=== PATIENT | female | born 1990 | race Caucasian/White ===

== ENCOUNTER 2019-12-18 07:03 | Outpatient (CLI) | payer OTHER, SELFPAY ==
[2019-12-18 07:40] LABS: Basophils Percent Auto 0.3 % (0.2-1.2); Eosinophils Absolute Auto 0.2 K/mm3 (0-0.3); Eosinophils Percent Auto 1.5 % (0-4.4); Hematocrit 40.6 % (37.0-47.0); Hemoglobin 13.5 g/dL (12.0-15.0); Immature Granulocyte Absolute 0.06 K/mm3 (0.00-0.031); Immature Granulocyte Percent A 0.5 % (0-0.5); Lymphocytes Absolute Auto 2.75 K/mm3 (0.9-3.2); Lymphocytes Percent Auto 22.3 % (18.3-44.2); Mean Corpuscular HGB Conc 33.3 g/dl (32-36); Mean Corpuscular Hemoglobin 28.2 pg (26-34); Mean Corpuscular Volume 84.8 fl (80-100); Mean Platelet Volume 9.3 fl (7.4-10.4); Monocytes Percent Auto 8.4 % (2.6-8.5); Neutrophils Absolute Auto 8.3 K/mm3 (1.3-6.7); Platelet Count Result 373 k/mm3 (150-375); Red Blood Count 4.79 M/mm3 (4.2-5.4); Red Cell Distribution Width 13.6 % (11.5-14.5); White Blood Count 12.3 K/mm3 (4.5-10.0)
[2019-12-18 07:41] LABS: Add Urine Microscopic? YES; Appearance Urine Clear (Clear); Bacteria Urine Trace /hpf; Bilirubin Urine Negative (Negative); Blood Urine Negative (Negative); Color Urine Yellow (Yellow); Glucose Urine UA Negative (Negative); Ketones Urine Negative (Negative); Leukocyte Esterase Ur 3+ LEU/UL (NEGATIVE); Mucus Urine Rare /lpf; Nitrate Urine Negative (Negative); Protein Urine Negative (Negative); Specific Grav Ur 1.023 (1.001-1.035); Squamous Epithelial Cell Urine Many /hpf (Few); Urobilinogen Urine Negative mg/dL (<2.0); WBC Urine 31-50 /hpf (0-3)
[2019-12-18 07:52] LABS: Alanine Aminotransferase 28 U/L (4-35); Albumin Level 4.4 g/dL (3.5-5.1); Alkaline Phosphatase 83 U/L (38-126); Aspartate Amino Transferase 24 U/L (14-36); Bilirubin,Total 0.2 mg/dL (0.2-1.3); Blood Urea Nitrogen 6 mg/dL (7-17); Calcium 9.3 mg/dL (8.4-10.2); Carbon Dioxide 22 mmol/L (22-30); Chloride 104 mmol/L (98-107); Cholesterol 220 mg/dL (0-200); Estimated Glomerular Filt Rate > 60; Glucose 95 mg/dL (65-105); HDL Direct 60 mg/dL; Potassium 3.5 mmol/L (3.4-5.0); Sodium 135 mmol/L (137-145); Triglycerides 155 mg/dL (<150)
[2019-12-18 08:03] LABS: LDL Cholesterol Direct 129 mg/dL
[2019-12-18 08:15] LABS: Iron 74 ug/dL (37-170)
[2019-12-18 08:58] LABS: Folic Acid 19.9 ng/mL (2.76->20)
[2019-12-21 05:09] LABS: GGT 47 U/L (3-40)
== END 2019-12-18 07:04 | disposition home or self-care (01) ==
PROVIDERS: PCP Family Medicine; Visit Provider Family Medicine
DX: Z34.91 Encounter for supervision of normal pregnancy, unspecified, first trimester (principal); Z3A.08 8 weeks gestation of pregnancy; I10 Essential (primary) hypertension; E78.2 Mixed hyperlipidemia; R74.8 Abnormal levels of other serum enzymes
CPT/HCPCS: 36415; 80053; 80061; 81001; 82607; 82746; 82977; 83540; 83735; 84443; 85025

== ENCOUNTER 2020-06-18 01:54 | Outpatient (CLI) | payer OTHER, SELFPAY ==
[2020-06-18 02:58] LABS: Basophils Percent Auto 0.2 % (0.2-1.2); Eosinophils Absolute Auto 0.1 K/mm3 (0-0.3); Eosinophils Percent Auto 0.8 % (0-4.4); Hematocrit 34.6 % (37.0-47.0); Hemoglobin 11.4 g/dL (12.0-15.0); Immature Granulocyte Absolute 0.09 K/mm3 (0.00-0.031); Immature Granulocyte Percent A 0.7 % (0-0.5); Lymphocytes Absolute Auto 2.06 K/mm3 (0.9-3.2); Lymphocytes Percent Auto 16.1 % (18.3-44.2); Mean Corpuscular HGB Conc 32.9 g/dl (32-36); Mean Corpuscular Hemoglobin 27.2 pg (26-34); Mean Corpuscular Volume 82.6 fl (80-100); Mean Platelet Volume 9.9 fl (7.4-10.4); Monocytes Absolute Auto 1.1 K/mm3 (0.1-0.6); Monocytes Percent Auto 8.8 % (2.6-8.5); Neutrophils Absolute Auto 9.4 K/mm3 (1.3-6.7); Neutrophils Percent Auto 73.4 % (45.5-73.1); Platelet Count Result 320 k/mm3 (150-375); Red Blood Count 4.19 M/mm3 (4.2-5.4); Red Cell Distribution Width 15.2 % (11.5-14.5); White Blood Count 12.8 K/mm3 (4.5-10.0)
[2020-06-18 03:07] LABS: Add Urine Microscopic? YES; Appearance Urine Clear (Clear); Bacteria Urine Trace /hpf; Bilirubin Urine Negative (Negative); Blood Urine Negative (Negative); Color Urine Yellow (Yellow); Glucose Urine UA Negative (Negative); Ketones Urine 1+ mg/dL (Negative); Leukocyte Esterase Ur Negative LEU/UL (NEGATIVE); Mucus Urine Rare /lpf; Nitrate Urine Negative (Negative); Protein Urine Negative (Negative); Specific Grav Ur 1.013 (1.001-1.035); Squamous Epithelial Cell Urine Occasional /hpf (Few); Urobilinogen Urine Negative mg/dL (<2.0); WBC Urine 0-3 /hpf (0-3)
[2020-06-18 03:12] LABS: Alanine Aminotransferase 18 U/L (4-35); Albumin Level 3.6 g/dL (3.5-5.1); Alkaline Phosphatase 104 U/L (38-126); Anion Gap 8 mmol/L (8-16); Aspartate Amino Transferase 26 U/L (14-36); Bilirubin,Total 0.3 mg/dL (0.2-1.3); Blood Urea Nitrogen 10 mg/dL (7-17); Calcium 9.6 mg/dL (8.4-10.2); Carbon Dioxide 21 mmol/L (22-30); Chloride 105 mmol/L (98-107); Estimated Glomerular Filt Rate > 60; Glucose 108 mg/dL (65-105); Potassium 3.6 mmol/L (3.4-5.0); Sodium 134 mmol/L (137-145); Uric Acid 4.1 mg/dL (2.5-7.5)
[2020-06-18 03:14] LABS: Creatinine Urine 56.7 mg/dL; Total Protein Urine Random 13 mg/dL; Ur Ttl Prot Creatinine Ratio 0.23 mg/mg (0-0.20)
== END 2020-06-18 01:55 | disposition home or self-care (01) ==
LOC: ANHOBOP 02:30
PROVIDERS: Advanced Practice Midwife; PCP Family Medicine; Referring Provider Obstetrics & Gynecology; Visit Provider Obstetrics & Gynecology
DX: O13.9 Gestational [pregnancy-induced] hypertension without significant proteinuria, unspecified trimester (principal); Z3A.00 Weeks of gestation of pregnancy not specified
CPT/HCPCS: 36415; 59025; 80053; 81001; 82570; 84156; 84550; 85025; 87086; 87088

== ENCOUNTER 2020-06-19 08:11 | Outpatient (RCR) | payer OTHER, SELFPAY ==
[2020-05-15 09:12] VITALS: BP 119/80; PULSE 82
[2020-06-12 08:33] VITALS: BP 138/73; PULSE 78
[2020-06-19 09:41] VITALS: BP 134/90; PULSE 84
== END 2020-06-25 07:28 | disposition home or self-care (01) ==
LOC: ANHOBOP 08:11
PROVIDERS: PCP Family Medicine; Visit Provider Obstetrics & Gynecology
DX: O16.3 Unspecified maternal hypertension, third trimester (principal); Z3A.33 33 weeks gestation of pregnancy; Z3A.37 37 weeks gestation of pregnancy; Z3A.38 38 weeks gestation of pregnancy
CPT/HCPCS: 59025

== ENCOUNTER 2020-06-23 21:50 | Inpatient (IN) | payer OTHER, SELFPAY ==
[2020-06-23] VITALS (7 sets, daily range): BP systolic 130–142; BP diastolic 67–82; PULSE 76–86; TEMP 37.2
[2020-06-23] MEDS: DINOPROSTONE 10 MG VAG INSERT VAGINAL (22:35)
[2020-06-23 22:38] LABS: Basophils Percent Auto 0.3 % (0.2-1.2); Eosinophils Absolute Auto 0.2 K/mm3 (0-0.3); Eosinophils Percent Auto 1.5 % (0-4.4); Hemoglobin 11.3 g/dL (12.0-15.0); Immature Granulocyte Absolute 0.15 K/mm3 (0.00-0.031); Immature Granulocyte Percent A 1.3 % (0-0.5); Lymphocytes Absolute Auto 1.86 K/mm3 (0.9-3.2); Lymphocytes Percent Auto 15.6 % (18.3-44.2); Mean Corpuscular HGB Conc 32.3 g/dl (32-36); Mean Corpuscular Hemoglobin 26.8 pg (26-34); Mean Corpuscular Volume 83.1 fl (80-100); Mean Platelet Volume 10.3 fl (7.4-10.4); Monocytes Absolute Auto 1.3 K/mm3 (0.1-0.6); Monocytes Percent Auto 10.6 % (2.6-8.5); Neutrophils Absolute Auto 8.5 K/mm3 (1.3-6.7); Neutrophils Percent Auto 70.7 % (45.5-73.1); Platelet Count Result 310 k/mm3 (150-375); Red Blood Count 4.21 M/mm3 (4.2-5.4); Red Cell Distribution Width 15.6 % (11.5-14.5)
--- NOTE | 2020-06-23 22:43 | LDADM ---
This patient, Tamra Esparza, was admitted to Labor/Delivery/Recovery 108 on 06/23/20 at 21:50. Plans for labor, pain management and were discussed with patient. Patient/family oriented to hospital policies and general routines including ID bracelet, bed and alarms, visiting hours, pain management, procedures, bathroom and other care routines, personal items, smoking policy, room service/diet and guest tray routines, security routines, and visiting hours. Patient/Family are encouraged to report perceived risks to care and to ask questions if they do not understand what they are told or what they should do. See OBIX for further documentation.
[2020-06-23 22:46] LABS: Alanine Aminotransferase 14 U/L (4-35); Albumin Level 3.3 g/dL (3.5-5.1); Alkaline Phosphatase 95 U/L (38-126); Anion Gap 4 mmol/L (8-16); Aspartate Amino Transferase 21 U/L (14-36); Bilirubin,Total 0.2 mg/dL (0.2-1.3); Blood Urea Nitrogen 11 mg/dL (7-17); Calcium 10.1 mg/dL (8.4-10.2); Carbon Dioxide 25 mmol/L (22-30); Chloride 106 mmol/L (98-107); Estimated Glomerular Filt Rate > 60; Glucose 103 mg/dL (65-105); Potassium 3.9 mmol/L (3.4-5.0); Sodium 135 mmol/L (137-145); Uric Acid 3.7 mg/dL (2.5-7.5)
[2020-06-24] VITALS (209 sets, daily range): BP systolic 71–182; BP diastolic 39–127; PULSE 66–123; RESP 19; TEMP 36.2–37.1; O2SAT 89–100
[2020-06-24] MEDS: AMPICILLIN 2 GM/NS 100 ML 2 GM/100 ML BAG IVPB (00:37)
[2020-06-24] MEDS: LACTATED RINGERS 1,000 ML 125 ML IV CONT ×4 (00:37→20:28)
[2020-06-24] MEDS: AMPICILLIN 1 GM/NS 50 ML 1 GM/50 ML BAG IVPB ×3 (04:37→16:46)
[2020-06-24] MEDS: fentaNYL CITRATE INJ (*CRX) 100 MCG/2 ML VIAL 50 MCG IV PUSH ×2 (04:49→07:39)
[2020-06-24 07:05] LABS: Rapid Plasma Reagin Non-Reactive (NonReactive)
--- NOTE | 2020-06-24 07:31 | WPDOBADMIT ---
Obstetrics - Admit Note Admission Note: record reviewed. No pertinent additions to the history and/or any subsequent changes in the physical findings that are not consistent with the expected course of the were found.MIL for chronic HTN, AROM moderate amount of clear fluid SVe /-2 Additions to the history and/or subsequent changes in the physical findings follow. None.
--- NOTE | 2020-06-24 08:15 | WPDANESEPP ---
Anes - Eval Pre Procedure Procedure: Labor Epidural Date/Time: 06/24/20 08:15 Surgeon: Castro Preop Diagnosis: Labor Pain Pre Op Diagnosis: Induction Patient Data Age: 29 Gender: F Height: 5 ft 5 in Weight: 129 kg Last Vital Signs Temp 37.2 C 06/23/20 22:30 Pulse 68 06/24/20 00:31 BP 133/94 H 06/24/20 00:31 Allergies Allergy/AdvReac Type Severity Reaction Status Date / Time No Known Allergies Allergy Unverified 11/25/19 14:59 Home Medications Medication Instructions Recorded Confirmed Type PNV cmb#95-ferrous fumarate-FA 1 tablet PO DAILY 06/04/20 06/23/20 History [] vitamin G52-zjbxh acid 1 tablet PO DAILY 06/04/20 06/23/20 History Laboratory Tests 06/23/20 06/23/20 06/23/20 22:29 22:29 22:29 WBC 12.0 K/mm3 H K/mm3 (4.5-10.0) RBC 4.21 M/mm3 M/mm3 (4.2-5.4) Hgb 11.3 g/dL L g/dL (12.0-15.0) Hct 35.0 % L % (37.0-47.0) MCV 83.1 fl fl (80-100) MCH 26.8 pg pg (26-34) MCHC 32.3 g/dl g/dl (32-36) RDW 15.6 % H % (11.5-14.5) Plt Count 310 k/mm3 k/mm3 (150-375) MPV 10.3 fl fl (7.4-10.4) Immature Gran % (Auto) 1.3 % H % (0-0.5) Neut % (Auto) 70.7 % % (45.5-73.1) Lymph % (Auto) 15.6 % L % (18.3-44.2) [place] % (Auto) 10.6 % H % (2.6-8.5) Eos % (Auto) 1.5 % % (0-4.4) Baso % (Auto) 0.3 % % (0.2-1.2) Lymph # (Auto) 1.86 K/mm3 K/mm3 (0.9-3.2) [place] # (Auto) 1.3 K/mm3 H K/mm3 (0.1-0.6) Eos # (Auto) 0.2 K/mm3 K/mm3 (0-0.3) Baso # (Auto) 0.0 K/mm3 K/mm3 (0.0-0.1) Abs Immat Gran (auto) 0.15 K/mm3 H K/mm3 (0.00-0.031) Absolute Neuts (auto) 8.5 K/mm3 H K/mm3 (1.3-6.7) Absolute Nucleated RBC 0.0 K/mm3 K/mm3 (0.0-0.012) Nucleated RBC % 0.0 % % (0.0-0.2) Sodium Potassium Chloride Carbon Dioxide Anion Gap BUN Creatinine Estim Creat Clear Calc Estimated GFR Glucose Uric Acid Calcium Total Bilirubin AST ALT Alkaline Phosphatase Total Protein Albumin RPR Non-reactive (NonReactive) Blood Type O Positive Antibody Screen Negative 06/23/20 22:29 WBC RBC Hgb Hct MCV MCH MCHC RDW Plt Count MPV Immature Gran % (Auto) Neut % (Auto) Lymph % (Auto) [place] % (Auto) Eos % (Auto) Baso % (Auto) Lymph # (Auto) [place] # (Auto) Eos # (Auto) Baso # (Auto) Abs Immat Gran (auto) Absolute Neuts (auto) Absolute Nucleated RBC Nucleated RBC % Sodium 135 mmol/L L mmol/L (137-145) Potassium 3.9 mmol/L mmol/L (3.4-5.0) Chloride 106 mmol/L mmol/L (98-107) Carbon Dioxide 25 mmol/L mmol/L (22-30) Anion Gap 4 mmol/L L mmol/L (8-16) BUN 11 mg/dL mg/dL (7-17) Creatinine 0.40 mg/dL L mg/dL (0.7-1.0) Estim Creat Clear Calc Not Reportable Estimated GFR > 60 (59 - ) Glucose 103 mg/dL mg/dL (65-105) Uric Acid 3.7 mg/dL mg/dL (2.5-7.5) Calcium 10.1 mg/dL mg/dL (8.4-10.2) Total Bilirubin 0.2 mg/dL mg/dL (0.2-1.3) AST 21 U/L U/L (14-36) ALT 14 U/L U/L (4-35) Alkaline Phosphatase 95 U/L U/L (38-126) Total Protein 7.0 g/dL g/dL (6.3-8.2) Albumin 3.3 g/dL L g/dL (3.5-5.1) RPR Blood Type Antibody Screen : gestational age (RADHA 07/03/20. ) HCG: negative Patient hx anesthesia problems: none Family hx anesthesia problems: none [facility] Past Medical History Medical History (Reviewed 06/24/20 @ 08:16 by Lesia Broussard, SURVEY AND MAPPING TECHNICIAN
[2020-06-24] MEDS: OXYTOCIN 30 UNITS/NS 500 ML 30 UNITS/500 ML BAG IV CONT (10:44)
[2020-06-24] MEDS: ONDANSETRON INJ 4 MG/2 ML VIAL IV PUSH (17:54)
[2020-06-24] MEDS: miSOPROStol 200 MCG TABLET 1000 MCG (20:24)
[2020-06-24] MEDS: fentaNYL CITRATE INJ (*CRX) 100 MCG/2 ML VIAL IV PUSH (20:25)
[2020-06-24] MEDS: CARBOPROST TROMETHAMINE 250 MCG/ML AMPUL (20:36)
[2020-06-24] MEDS: OXYTOCIN 30 UNITS/NS 500 ML 30 UNITS/500 ML BAG 125 UNITS IV CONT (20:38)
--- NOTE | 2020-06-24 20:51 | PM.OBPRVD ---
OB - Delivery Note Procedure Delivery date: 06/24/20 Procedure: vaginal delivery Intrapartal events: Other (HTN) Induction method: AROM, per pitocin protocol and per cervidil protocol Delivery monitor: none Route of delivery: Laceration Description: Perineal - 2nd Degree Delivery repair: vicryl Specimen: Yes Quantitative Blood Loss (ml): 783 Anesthesia type: Epidural Disposition: other () Baby Date of : 06/24/20 Time of : 19:59 Weeks of gestation at delivery: 38 Infant gender: Female Weight (pounds): 7 Weight (ounces): 13 presentation: vertex position: Left Occiput Anterior Placenta delivery description: Spontaneous cord vessel description: 3 Vessels, Nuchal Cord and Clamped/Cut score one minute: 8 score five minutes: 9 Narrative: bleeding more than expected, fundus boggy, fundal massage, clots removed, pitocin increased, cytotec 1000mcg and hemobate. VSS and pt feeling well,bleeding now minimal, mother and baby in stable condition
--- NOTE | 2020-06-24 20:55 | PM.IMHP ---
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 Pyogenic granuloma Warts of foot Family History Family History Mother Family history of thyroid disease Hypertension Patient's mother is in good health Family history of anemia Grandparent Diabetes mellitus, Onset Age: 75 Hypertension, Onset Age: 72 Family history of anemia Family history of malignant neoplasm Father Hypertension Patient's father is in good health Social History Social History Smoking status: Never smoker Substance use: never Gender identity (if verbalized by the patient): Female Spiritual care concerns: No Meds Home Medications and Allergies Home Medications Medication Instructions Recorded Confirmed Type PNV cmb#95-ferrous fumarate-FA 1 tablet PO DAILY 06/04/20 06/23/20 History [] vitamin A69-lhava acid 1 tablet PO DAILY 06/04/20 06/23/20 History Allergies Allergy/AdvReac Type Severity Reaction Status Date / Time No Known Allergies Allergy Unverified 11/25/19 14:59 Vital Signs Vital Signs - 24 hr 06/23/20 22:30 06/23/20 22:41 06/23/20 22:46 Temperature 37.2 C Pulse Rate 76 77 Blood Pressure 142/76 H 139/77 Pulse Oximetry 06/23/20 23:01 06/23/20 23:16 06/23/20 23:31 Temperature Pulse Rate 77 86 77 Blood Pressure 138/72 136/67 136/82 Pulse Oximetry 06/23/20 23:46 06/24/20 00:01 06/24/20 00:16 Temperature Pulse Rate 80 75 74 Blood Pressure 130/77 133/74 136/69 Pulse Oximetry 06/24/20 00:31 06/24/20 08:30 06/24/20 08:41 Temperature 36.2 C L Pulse Rate 68 70 Blood Pressure 133/94 H 145/86 H Pulse Oximetry 06/24/20 09:31 06/24/20 09:34 06/24/20 09:36 Temperature Pulse Rate 86 84 Blood Pressure 134/72 139/67 Pulse Oximetry 99 98 06/24/20 09:39 06/24/20 09:42 06/24/20 09:44 Temperature Pulse Rate 86 82 Blood Pressure 125/60 126/78 Pulse Oximetry 99 99 06/24/20 09:46 06/24/20 09:48 06/24/20 09:49 Temperature Pulse Rate 82 84 Blood Pressure 114/67 120/65 Pulse Oximetry 98 06/24/20 09:51 06/24/20 09:53 06/24/20 09:54 Temperature Pulse Rate 81 88 Blood Pressure 107/44 L 118/52 L Pulse Oximetry 99 06/24/20 09:56 06/24/20 09:58 06/24/20 09:59 Temperature Pulse Rate 79 84 Blood Pressure 113/65 104/39 L Pulse Oximetry 99 06/24/20 10:01 06/24/20 10:03 06/24/20 10:04 Temperature Pulse Rate 86 82 Blood Pressure 116/62 120/58 L Pulse Oximetry 99 06/24/20 10:06 06/24/20 10:08 06/24/20 10:09 Temperature Pulse Rate 84 88 Blood Pressure 115/58 L 117/56 L Pulse Oximetry 99 06/24/20 10:11 06/24/20 10:13 06/24/20 10:14 Temperature Pulse Rate 89 79 Blood Pressure 113/43 L 106/59 L Pulse Oximetry 99 06/24/20 10:16 06/24/20 10:18 06/24/20 10:19 Temperature Pulse Rate 77 82 Blood Pressure 104/62 112/55 L Pulse Oximetry 100 06/24/20 10:21 06/24/20 10:24 06/24/20 10:25 Temperature Pulse Rate 82 78 79 Blood Pressure 102/54 L 71/50 L 96/47 L Pulse Oximetry 99 06/24/20 10:28 06/24/20 10:29 06/24/20 10:30 Temperature 36.6 C Pulse Rate 80 Blood Pressure 93/58 L Pulse Oximetry 100 06/24/20 10:31 06/24/20 10:33 06/24/20 10:34 Temperature Pulse Rate 75 74 Blood Pressure 112/65 110/58 L Pulse Oximetry 98 06/24/20 10:36 06/24/20 10:38 06/24/20 10:39 Temperature Pulse Rate 80 75 Blood
[2020-06-24] MEDS: OXYTOCIN 30 UNITS/NS 500 ML 30 UNITS/500 ML BAG 999 UNITS IV CONT (22:06)
[2020-06-24] MEDS: IBUPROFEN 600 MG TABLET PO (23:07)
--- NOTE | 2020-06-24 23:14 | OBPPTRN ---
Patient transferred to post room #287 via wheelchair with in crib. Support person present. Oriented to unit, room, information board, rooming in, admission packet and security measures. Patient verbalizes understanding.
[2020-06-25 05:06] LABS: Hematocrit 28.3 % (37.0-47.0); Hemoglobin 9.2 g/dL (12.0-15.0)
--- NOTE | 2020-06-25 08:00 | PM.OBPNVD ---
OB - PN: Subj Subjective Date/time seen: 06/25/20 08:00 Patient comments: no complaints baby status: doing well OB - PN: Obj Data Labs CBC & Chem 7: 06/25/20 04:46 06/23/20 22:29 Labs: Laboratory Results - last 24 hr 06/25/20 04:46 Hgb 9.2 L Hct 28.3 L OB - PN A/P Plan day: 1 Plan: routine care Time Spent With Patient Time: Total time spent is greater than 50% in coordination of care (as documented) at patient's floor/unit and/or counseling patient: Time with patient: less than 15 minutes Review of Systems Review of Systems: All systems reviewed & are unremarkable except as noted in HPI and below Exam Narrative: Exam Narrative: Fundus firm and vaginal flow controlled. No lower ext redness, warmth, or edema. Negative homans. Const: General: comfortable Chest: Breast/axilla inspection: normal inspection of the breasts Resp: Effort & Inspection: normal respiratory effort Cardio: Rate: regular rate GI: GI Palp: Yes Soft to palpation Psych: Appearance: grossly normal Affect: normal affect Attitude: cooperative Thought content: Yes Normal thought content present Judgement: Good judgement present (Psych)
[2020-06-25 08:25] VITALS: BP 141/78; PULSE 80; RESP 16; TEMP 36.5; O2SAT 99
[2020-06-25] MEDS: MULTIVIT/MIN/PREN/FOL AC/IRON TABLET 1 TAB PO (08:29)
[2020-06-25] MEDS: POLYSACCHARIDE IRON COMPLEX 150 MG CAPSULE PO ×2 (08:29→16:30)
[2020-06-25] MEDS: DOCUSATE SODIUM 100 MG CAPSULE PO ×2 (08:29→16:31)
[2020-06-25] MEDS: IBUPROFEN 600 MG TABLET PO ×2 (08:29→16:30)
[2020-06-25 08:40] VITALS: PULSE 80; RESP 16; O2SAT 99
--- NOTE | 2020-06-25 10:33 | WPDANLDPN2 ---
Anes-Prog Note L&D Date/Time: 06/25/20 10:33 Comfortable throughout: labor and delivery Neuraxial method: epidural Epidural/Spinal procedure site: clean & non-tender Neuro status: Neuro function grossly intact. Cardiovascular status: normal Respiratory status: normal Airway patency: baseline Mental status: baseline Post-Op hydration status: normal Vital Signs: Last Vital Signs Temp 36.5 C 06/25/20 08:25 Pulse 80 06/25/20 08:25 Resp 16 06/25/20 08:25 BP 141/78 H 06/25/20 08:25 Pulse Ox 99 06/25/20 08:25 Pain score (VAS): 0 I/O: Intake & Output 06/24/20 06/25/20 06/25/20 23:59 07:59 15:59 Intake Total 3000 Output Total 52 Balance 2948 Post-procedural complaints: none Patient feedback: Patient satisfied with anesthetic care.
--- NOTE | 2020-06-25 11:16 | PC.NURSE ---
Consulted with patient, reviewed feeding cues, frequencies, duration of feedings, feeding elimination flow sheet, and signs of adequate intake. Demonstrated stimulation techniques to wake for feeding. Assisted with to breast. Reviewed positioning/alignment, holding breast and asymmetrical latch on. was able to latch correctly. Infant nursed eagerly, with steady draws and frequent swallowing noted. Reviewed signs of a correct latch, effective nursing and suck swallow ratio. was able to maintain latch without discomfort to mother. Nipple care reviewed. Instructed mother to call out for RN assistance if she is unable to latch for feeding or she has discomfort with nursing. Instructed feeding should be initiated three hours from start of last feeding or if feeding cues are noted before. Mother voiced understanding of information shared.
--- NOTE | 2020-06-26 07:40 | PM.OBPNVD ---
OB - PN: Subj Subjective Date/time seen: 06/26/20 07:40 Patient comments: no complaints baby status: doing well OB - PN: Obj Data Labs CBC & Chem 7: 06/25/20 04:46 06/23/20 22:29 OB - PN A/P Time Spent With Patient Time: Total time spent is greater than 50% in coordination of care (as documented) at patient's floor/unit and/or counseling patient: Review of Systems Review of Systems: All systems reviewed & are unremarkable except as noted in HPI and below Constitutional: Constitutional: Reports as per HPI Exam Const: General: cooperative Psych: Affect: normal affect Attitude: cooperative Thought process: Normal thought process present Thought content: Yes Normal thought content present Insight: Good insight present (Psych) Judgement: Good judgement present (Psych)
--- NOTE | 2020-06-26 07:42 | PM.OBDSVD ---
DS: Admitting Diagnosis Admitting Diagnosis Admitting Diagnosis: EIL OB - DS: Summary OB Procedures : None OB Procedures Intrapartum: Spontaneous Vag Delivery and Other OB Procedures: : None Time Spent with Patient Time attestation: Total time spent providing and/or coordinating discharge services: DS: Data Data Completed and Pending Pending studies at discharge: Pending at discharge 06/24/20 20:05 Surgical [PTH] Routine Discharge Plan Discharge Attending physician on discharge: Melvin Erazo Discharging Clinician: Lien Lucero Patient Disposition: Home, Self-Care Activity: pelvic rest Diet: regular Patient Instructions: Antibiotic Form Stand Alone Forms: General Discharge Information Follow-up/Referrals: Lien Lucero, CNM [Certified Nurse [employer]] - 4 Weeks Discharge Medications: Continued vitamin O89-ladvr acid 500-400 mcg Tablet 1 tablet PO DAILY RF: 0 PNV cmb#95-ferrous fumarate-FA [] 28 mg iron- 800 mcg Tablet 1 tablet PO DAILY RF: 0 Date of admission: 06/23/20 21:50 Primary Care Provider: Shayne Castro Admitting Provider: Melvin Erazo Attending physician on admission: Melvin Erazo Condition: Stable
[2020-06-26 08:20] VITALS: BP 129/81; PULSE 74; RESP 16; TEMP 36.5; O2SAT 99
[2020-06-26 09:00] VITALS: PULSE 74; RESP 16; O2SAT 99
[2020-06-26] MEDS: IBUPROFEN 600 MG TABLET PO (09:57)
[2020-06-26] MEDS: MULTIVIT/MIN/PREN/FOL AC/IRON TABLET 1 TAB PO (09:58)
[2020-06-26] MEDS: POLYSACCHARIDE IRON COMPLEX 150 MG CAPSULE PO (09:58)
[2020-06-26] MEDS: DOCUSATE SODIUM 100 MG CAPSULE PO (09:59)
--- NOTE | 2020-06-26 11:14 | PC.NURSE ---
Patient viewed the discharge video Mother & Baby Care, The First Two Weeks . Patient was given the opportunity and encouraged to ask questions. Patient verbalized understanding of information shared and has been given the mother/baby guide for home reference.
[2020-06-27 10:12] VITALS: BP 143/93; PULSE 87; RESP 20; TEMP 36.9; O2SAT 100
== END 2020-06-26 14:10 | disposition home or self-care (01) | DRG 807 ==
LOC: ANHLDR 22:02 → ANHOB2 06-24 23:50
PROVIDERS: Advanced Practice Midwife; Admitting Provider Obstetrics & Gynecology; PCP Family Medicine; Visit Provider Obstetrics & Gynecology
DX: O10.92 Unspecified pre-existing hypertension complicating childbirth (principal); Z37.0 Single live birth; O70.1 Second degree perineal laceration during delivery; O99.824 Streptococcus B carrier state complicating childbirth; O69.81X0 Labor and delivery complicated by cord around neck, without compression, not applicable or unspecified; Z3A.38 38 weeks gestation of pregnancy; E78.5 Hyperlipidemia, unspecified
CPT/HCPCS: 36415; 80053; 84550; 85014; 85018; 85025; 86592; 86850; 86900; 86901; 88307; A9270; J0290; J2405; J2590; J2795; J3010; J7120

== ENCOUNTER 2020-06-27 10:30 | Outpatient (CLI) | payer OTHER, SELFPAY ==
[2020-06-27 10:46] VITALS: BP 151/91; PULSE 79
[2020-06-27 11:01] VITALS: BP 134/77; PULSE 77
[2020-06-27 11:07] LABS: Basophils Percent Auto 0.5 % (0.2-1.2); Eosinophils Percent Auto 2.3 % (0-4.4); Hematocrit 30.4 % (37.0-47.0); Hemoglobin 9.8 g/dL (12.0-15.0); Immature Granulocyte Percent A 2.2 % (0-0.5); Lymphocytes Percent Auto 15.7 % (18.3-44.2); Mean Corpuscular HGB Conc 32.2 g/dl (32-36); Mean Corpuscular Hemoglobin 27.2 pg (26-34); Mean Corpuscular Volume 84.4 fl (80-100); Mean Platelet Volume 9.7 fl (7.4-10.4); Monocytes Percent Auto 8.1 % (2.6-8.5); Neutrophils Percent Auto 71.2 % (45.5-73.1); Platelet Count Result 290 k/mm3 (150-375); Red Cell Distribution Width 15.9 % (11.5-14.5); White Blood Count 11.6 K/mm3 (4.5-10.0)
[2020-06-27 11:08] LABS: Basophils Absolute Auto 0.1 K/mm3 (0.0-0.1); Eosinophils Absolute Auto 0.3 K/mm3 (0-0.3); Immature Granulocyte Absolute 0.26 K/mm3 (0.00-0.031); Lymphocytes Absolute Auto 1.81 K/mm3 (0.9-3.2); Monocytes Absolute Auto 0.9 K/mm3 (0.1-0.6); Neutrophils Absolute Auto 8.2 K/mm3 (1.3-6.7)
[2020-06-27 11:21] LABS: Alanine Aminotransferase 30 U/L (4-35); Albumin Level 3.3 g/dL (3.5-5.1); Alkaline Phosphatase 81 U/L (38-126); Anion Gap 4 mmol/L (8-16); Aspartate Amino Transferase 37 U/L (14-36); Bilirubin,Total 0.3 mg/dL (0.2-1.3); Blood Urea Nitrogen 9 mg/dL (7-17); Calcium 8.7 mg/dL (8.4-10.2); Carbon Dioxide 29 mmol/L (22-30); Chloride 104 mmol/L (98-107); Estimated Glomerular Filt Rate > 60; Glucose 84 mg/dL (65-105); Potassium 3.6 mmol/L (3.4-5.0); Sodium 137 mmol/L (137-145)
[2020-06-27 11:42] VITALS: BP 129/79; PULSE 61
== END 2020-06-27 12:03 | disposition home or self-care (01) ==
LOC: ANHOBOP 10:35 → ANHOBPP 10:35
PROVIDERS: PCP Family Medicine; Visit Provider Advanced Practice Midwife
DX: O13.9 Gestational [pregnancy-induced] hypertension without significant proteinuria, unspecified trimester (principal); Z3A.00 Weeks of gestation of pregnancy not specified
CPT/HCPCS: 36415; 80053; 84550; 85025; 99199

== ENCOUNTER 2020-06-28 12:03 | Outpatient (CLI) | payer OTHER, SELFPAY ==
[2020-06-28 12:27] VITALS: BMI 46.0
[2020-06-28 12:33] LABS: Basophils Absolute Auto 0.1 K/mm3 (0.0-0.1); Basophils Percent Auto 0.6 % (0.2-1.2); Eosinophils Absolute Auto 0.3 K/mm3 (0-0.3); Eosinophils Percent Auto 3.1 % (0-4.4); Hematocrit 31.4 % (37.0-47.0); Hemoglobin 10.1 g/dL (12.0-15.0); Immature Granulocyte Percent A 1.9 % (0-0.5); Lymphocytes Absolute Auto 1.83 K/mm3 (0.9-3.2); Lymphocytes Percent Auto 17.5 % (18.3-44.2); Mean Corpuscular HGB Conc 32.2 g/dl (32-36); Mean Corpuscular Hemoglobin 27.1 pg (26-34); Mean Corpuscular Volume 84.2 fl (80-100); Mean Platelet Volume 9.4 fl (7.4-10.4); Monocytes Absolute Auto 0.9 K/mm3 (0.1-0.6); Monocytes Percent Auto 8.3 % (2.6-8.5); Neutrophils Absolute Auto 7.2 K/mm3 (1.3-6.7); Neutrophils Percent Auto 68.6 % (45.5-73.1); Platelet Count Result 331 k/mm3 (150-375); Red Blood Count 3.73 M/mm3 (4.2-5.4); Red Cell Distribution Width 16.1 % (11.5-14.5); White Blood Count 10.5 K/mm3 (4.5-10.0)
[2020-06-28 12:34] VITALS: BP 142/95; PULSE 75
[2020-06-28 12:45] LABS: Alanine Aminotransferase 41 U/L (4-35); Albumin Level 3.4 g/dL (3.5-5.1); Alkaline Phosphatase 86 U/L (38-126); Anion Gap 4 mmol/L (8-16); Aspartate Amino Transferase 41 U/L (14-36); Bilirubin,Total 0.2 mg/dL (0.2-1.3); Blood Urea Nitrogen 8 mg/dL (7-17); Calcium 9.3 mg/dL (8.4-10.2); Carbon Dioxide 29 mmol/L (22-30); Chloride 105 mmol/L (98-107); Estimated CRCL calculation 186 ml/min; Estimated Glomerular Filt Rate > 60; Glucose 83 mg/dL (65-105); Potassium 3.9 mmol/L (3.4-5.0); Sodium 138 mmol/L (137-145); Uric Acid 6.3 mg/dL (2.5-7.5)
[2020-06-28 12:46] VITALS: BP 148/90; PULSE 72
--- NOTE | 2020-06-28 12:54 | PC.NURSE ---
Jackie Simmons CNM informed pt denies headache, visual disturbance, epigastric/RUQ pain, and DTR's 1+ and no clonus. Pt still has 1-2+ pitting edema in lower legs and ankles. Informed of lab results and BPs. OK to discharge to home with instructions to return to L&D if she should develop any symptoms of pre-eclampsia as per handout. Pt is also to call the office in the morning and make appointment to be seen either Monday or Monday in the office by Zulma Lucero CNM or Jackie Simmons CNM.
[2020-06-28 13:01] VITALS: BP 155/90; PULSE 80
--- NOTE | 2020-06-28 13:01 | PC.NURSE ---
Pt is . Pt verbalizes understanding of all instruction. Pt to call when they are ready to be walked off the unit.
== END 2020-06-28 13:19 | disposition home or self-care (01) ==
LOC: ANHOBOP 12:04 → ANHOBPP 07-03 07:39
PROVIDERS: Advanced Practice Midwife; PCP Family Medicine; Visit Provider Obstetrics & Gynecology
DX: O13.9 Gestational [pregnancy-induced] hypertension without significant proteinuria, unspecified trimester (principal); Z3A.00 Weeks of gestation of pregnancy not specified
CPT/HCPCS: 36415; 80053; 84550; 85025; 99199

== ENCOUNTER 2021-04-16 06:59 | Outpatient (CLI) | payer OTHER, SELFPAY ==
[2021-04-16 07:43] LABS: Basophils Absolute Auto 0.1 K/mm3 (0.0-0.1); Basophils Percent Auto 0.3 % (0.2-1.2); Eosinophils Absolute Auto 0.2 K/mm3 (0-0.3); Eosinophils Percent Auto 1.4 % (0-4.4); Hematocrit 40.2 % (37.0-47.0); Immature Granulocyte Absolute 0.08 K/mm3 (0.00-0.031); Immature Granulocyte Percent A 0.6 % (0-0.5); Lymphocytes Absolute Auto 2.52 K/mm3 (0.9-3.2); Lymphocytes Percent Auto 17.4 % (18.3-44.2); Mean Corpuscular HGB Conc 32.3 g/dl (32-36); Mean Corpuscular Hemoglobin 27.6 pg (26-34); Mean Corpuscular Volume 85.4 fl (80-100); Mean Platelet Volume 9.7 fl (7.4-10.4); Monocytes Absolute Auto 1.5 K/mm3 (0.1-0.6); Monocytes Percent Auto 10.5 % (2.6-8.5); Neutrophils Absolute Auto 10.1 K/mm3 (1.3-6.7); Neutrophils Percent Auto 69.8 % (45.5-73.1); Platelet Count Result 376 k/mm3 (150-375); Red Blood Count 4.71 M/mm3 (4.2-5.4); Red Cell Distribution Width 14.5 % (11.5-14.5); White Blood Count 14.5 K/mm3 (4.5-10.0)
[2021-04-16 07:56] LABS: Add Urine Microscopic? YES; Appearance Urine Cloudy (Clear); Bacteria Urine Trace /hpf; Bilirubin Urine Negative (Negative); Blood Urine Negative (Negative); Color Urine Yellow (Yellow); Glucose Urine UA Negative (Negative); Ketones Urine Negative (Negative); Leukocyte Esterase Ur Trace LEU/UL (NEGATIVE); Mucus Urine Few /lpf; Nitrate Urine Negative (Negative); Protein Urine 1+ mg/dL (Negative); Specific Grav Ur 1.028 (1.001-1.035); Squamous Epithelial Cell Urine Many /hpf (Few); Urobilinogen Urine Negative mg/dL (<2.0)
[2021-04-16 07:58] LABS: Alanine Aminotransferase 30 U/L (4-35); Albumin Level 4.8 g/dL (3.5-5.1); Alkaline Phosphatase 97 U/L (38-126); Anion Gap 13 mmol/L (8-16); Aspartate Amino Transferase 28 U/L (14-36); Bilirubin,Total 0.5 mg/dL (0.2-1.3); Blood Urea Nitrogen 11 mg/dL (7-17); Calcium 9.8 mg/dL (8.4-10.2); Carbon Dioxide 23 mmol/L (22-30); Chloride 102 mmol/L (98-107); Cholesterol 256 mg/dL (0-200); Estimated Glomerular Filt Rate > 60; Glucose 96 mg/dL (65-110); HDL Direct 54 mg/dL; Iron 47 ug/dL (37-170); Potassium 3.8 mmol/L (3.4-5.0); Sodium 138 mmol/L (137-145); Triglycerides 205 mg/dL (<150)
[2021-04-16 08:09] LABS: LDL Cholesterol Direct 148 mg/dL
[2021-04-16 08:12] LABS: Percent Iron Saturation 11 % (20-50)
[2021-04-16 09:05] LABS: Folic Acid 16.7 ng/mL (2.76->20)
== END 2021-04-16 07:00 | disposition home or self-care (01) ==
LOC: ANHLAB 07:01
PROVIDERS: PCP Family Medicine; Visit Provider Family Medicine
DX: E78.2 Mixed hyperlipidemia (principal); D64.9 Anemia, unspecified; I10 Essential (primary) hypertension
CPT/HCPCS: 36415; 80053; 80061; 81001; 82607; 82728; 82746; 83540; 83550; 84443; 85025

== ENCOUNTER 2022-12-07 00:01 | Inpatient (IN) | payer OTHER, SELFPAY ==
[2022-12-07] VITALS (387 sets, daily range): BP systolic 84–184; BP diastolic 34–119; PULSE 40–135; RESP 18; TEMP 36.4–37.2; O2SAT 91–100; BMI 42.2
--- NOTE | 2022-12-07 00:22 | LDADM ---
This patient, Tamra Esparza, was admitted to Labor/Delivery/Recovery 103 on 12/07/22 at 00:01. Plans for labor, pain management and were discussed with patient. Patient/family oriented to hospital policies and general routines including ID bracelet, bed and alarms, visiting hours, pain management, procedures, bathroom and other care routines, personal items, smoking policy, room service/diet and guest tray routines, security routines, and visiting hours. Patient/Family are encouraged to report perceived risks to care and to ask questions if they do not understand what they are told or what they should do. See OBIX for further documentation.
[2022-12-07 00:59] LABS: Basophils Absolute Auto 0.1 K/mm3 (0.0-0.1); Basophils Percent Auto 0.5 % (0.2-1.2); Eosinophils Absolute Auto 0.4 K/mm3 (0-0.3); Eosinophils Percent Auto 3.5 % (0-4.4); Hematocrit 36.1 % (37.0-47.0); Hemoglobin 11.6 g/dL (12.0-15.0); Immature Granulocyte Absolute 0.08 K/mm3 (0.00-0.031); Immature Granulocyte Percent A 0.8 % (0-0.5); Lymphocytes Absolute Auto 2.39 K/mm3 (0.9-3.2); Lymphocytes Percent Auto 23.4 % (18.3-44.2); Mean Corpuscular HGB Conc 32.1 g/dl (32-36); Mean Platelet Volume 11.7 fl (7.4-10.4); Monocytes Absolute Auto 1.1 K/mm3 (0.1-0.6); Monocytes Percent Auto 10.8 % (2.6-8.5); Neutrophils Absolute Auto 6.3 K/mm3 (1.3-6.7); Platelet Count Result 228 k/mm3 (150-375); Red Blood Count 4.15 M/mm3 (4.2-5.4); Red Cell Distribution Width 15.2 % (11.5-14.5); White Blood Count 10.2 K/mm3 (4.5-10.0)
[2022-12-07] MEDS: LABETALOL HCL INJ 100 MG/20 ML VIAL 20 MG IV PUSH (01:24)
[2022-12-07] MEDS: miSOPROStol 25 MCG TABLET BY MOUTH (01:27)
[2022-12-07 01:28] LABS: Alanine Aminotransferase 18 U/L (6-35); Albumin Level 3.5 g/dL (3.5-5.1); Alkaline Phosphatase 81 U/L (38-126); Anion Gap 4 mmol/L (8-16); Aspartate Amino Transferase 33 U/L (14-36); Bilirubin,Total 0.4 mg/dL (0.2-1.3); Blood Urea Nitrogen 11 mg/dL (7-17); Carbon Dioxide 24 mmol/L (22-30); Chloride 105 mmol/L (98-107); Estimated CRCL calculation 209 ml/min; Estimated Glomerular Filt Rate > 60; Glucose 106 mg/dL (65-110); Potassium 4.1 mmol/L (3.4-5.0); Sodium 133 mmol/L (137-145)
[2022-12-07] MEDS: LABETALOL HCL INJ 100 MG/20 ML VIAL 40 MG IV PUSH (02:20)
[2022-12-07 02:45] LABS: Appearance Urine Cloudy (Clear); Bacteria Urine None Seen /hpf; Bilirubin Urine Negative (Negative); Blood Urine Negative (Negative); Color Urine Yellow (Yellow); Glucose Urine UA Negative (Negative); Ketones Urine Negative (Negative); Leukocyte Esterase Ur 1+ LEU/UL (Negative); Need Manual Microscopic Reviewed; Nitrate Urine Negative (Negative); Non Pathogenic Casts 0-2; Protein Urine 1+ mg/dL (Negative); RBC Urine 0-2 /hpf (0-2); Specific Grav Ur 1.011 (1.001-1.035); Squamous Epithelial Cell Urine None seen /hpf (Few); Urobilinogen Urine 0.2 mg/dL (<2.0); WBC Urine 0-5 /hpf
[2022-12-07 02:46] LABS: Add Urine Microscopic? YES
[2022-12-07 03:09] LABS: Creatinine Urine 58.9 mg/dL; Total Protein Urine Random 38 mg/dL; Ur Ttl Prot Creatinine Ratio 0.65 mg/mg (0-0.20)
[2022-12-07] MEDS: MAGNESIUM SULF 4 GM/WATER100ML 4 GM/100 ML BAG IVPB (04:01)
[2022-12-07] MEDS: MAGNESIUM SULF 20GM/WATER500ML 500 ML 50 MG IV CONT ×2 (04:33→14:42)
[2022-12-07] MEDS: LACTATED RINGERS 1,000 ML 75 ML IV CONT ×2 (04:36→12:53)
[2022-12-07] MEDS: LABETALOL HCL INJ 100 MG/20 ML VIAL 80 MG IV PUSH (04:47)
[2022-12-07 04:55] LABS: Glucose Point of Care 87 mg/dl (65-105)
[2022-12-07 06:05] LABS: Uric Acid 4.8 mg/dL (2.5-7.5)
[2022-12-07] MEDS: OXYTOCIN 30 UNITS/NS 500 ML 30 UNITS/500 ML BAG IV CONT (07:23)
--- NOTE | 2022-12-07 07:39 | PM.IMHP ---
H&P: HPI History of Present Illness Date/Time: 12/07/22 07:39 Chief Complaint: pt arrived for [facility], pt has a history of obesity and chronic hypertension. Pt developed GDMA-1 and blood sugar is wnl this morning. Pt arrived with severe range blood pressures and was treated with labetalol x 2. PCR 0.65. Dr. Park was notified at the time and magnesium sulfate started. Denies headache, vision changes, and epigastric pain. Last complicated by preeclampsia and hemorrhage Review of Systems Review of Systems: All systems reviewed & are unremarkable except as noted in HPI and below [facility] Past Medical History Medical History (Updated 12/07/22 @ 07:49 by Lien Lucero CNM) Anemia hemoglobin 10.1 on 06/28/2020. hemoglobin 13 with iron 47 and 11% saturation with ferritin 15.7 on 04/16/2021 Anxiety COVID-19 (03/25/20) Elevated liver enzymes normal enzymes on 04/16/2021 with AST 28 and ALT 30 Essential (primary) hypertension Irritable bowel syndrome with constipation and diarrhea Mixed hyperlipidemia total cholesterol 256, triglycerides 205, HDL 54, LDL 148 on 04/16/2021 Morbid obesity with BMI of 40.0-44.9, adult Morbid obesity with body mass index (BMI) of 40.0 to 49.9 Neoplasm of skin of cheek Normal in multigravida in third trimester EDC 12/23/2022 Pyogenic granuloma Rash and nonspecific skin eruption Warts of foot Family History Family History Mother Family history of thyroid disease Hypertension Patient's mother is in good health Family history of anemia Grandparent Diabetes mellitus, Onset Age: 75 Hypertension, Onset Age: 72 Family history of anemia Family history of malignant neoplasm Father Hypertension Patient's father is in good health Social History Social History (Updated 09/21/22 @ 08:03 by Tara Jalloh MA) Smoking status: Never smoker Alcohol intake: never Substance use: never Substance use type: does not use Lack of Transportation: No Lack of Food: Never True Current Housing: I Have Housing Concerned About Future Housing: No Difficulty Paying Gas/Electric Bills: No Difficulty Paying for Meds: No Currently Unemployed: No Education: Bachelor's Degree Difficulty w/ Childcare or Family Care: No Living arrangements: with family Gender identity (if verbalized by the patient): Female Spiritual care concerns: No Meds Home Medications and Allergies Home Medications Medication Instructions Recorded Confirmed Type aspirin 81 mg tablet,delayed 81 mg PO DAILY 09/21/22 11/25/22 History release (Adult Low Dose Aspirin) labetalol 200 mg tablet 200 mg PO Q12H #180 tabs 09/21/22 11/25/22 Rx prenat.vits,lauren,icy-mwni-xizlp 1 tablet PO DAILY 09/21/22 11/25/22 History Allergies Allergy/AdvReac Type Severity Reaction Status Date / Time No Known Allergies Allergy Verified 11/25/22 15:42 Vital Signs Vital Signs - 24 hr 12/07/22 00:18 12/07/22 00:29 12/07/22 00:46 Temperature Pulse Rate 84 83 Respiratory Rate Blood Pressure 162/99 H 170/85 H Pulse Oximetry Oxygen Delivery Room Air 12/07/22 01:15 12/07/22 01:25 12/07/22 01:30 Temperature Pulse Rate 81 83 Respiratory Rate Blood Pressure 161/99 H 160/97 H Pulse Oximetry 97 98 Oxygen Delivery 12/07/22 01:35 12/07/22 01:37 12/07/22 01:40 Temperature Pulse Rate 78 78 Respiratory Rate Blood Pressure 153/94 H 149/90 H Pulse Oximetry 97 97 Oxygen Delivery 12/07/22 01:45 12/07/22 01:50 12/07/22 01:55 Temperature Pulse Rate 71 Respiratory Rate Blood Pressure 155/94 H Pulse Oximetry 98 96 98 Oxygen Delivery 12/07/22 02:00 12/07/22 02:06 12/07/22 02:10 Temperature Pulse Rate 76 75 Respiratory Rate Blood Pressure 155/93 H 170/96 H Pulse Oximetry 98 98 Oxygen Delivery 12/07/22 02:11 12/07/22 02:16 12/07/22 02:20
[2022-12-07] MEDS: LABETALOL HCL 100 MG TABLET 200 MG PO (07:42)
[2022-12-07 07:54] LABS: Glucose Point of Care 87 mg/dl (65-105)
[2022-12-07 09:17] LABS: Rapid Plasma Reagin Non-Reactive (NonReactive)
--- NOTE | 2022-12-07 10:15 | PC.NURSE ---
5923- Introductions were made. Mother states she plans to breastfeed. Trifold with bonding/feeling education was left with mother. Encouragement to mother to call if she has needs. Primary RN was present.
[2022-12-07 11:38] LABS: Glucose Point of Care 76 mg/dl (65-105)
[2022-12-07] MEDS: ONDANSETRON INJ 4 MG/2 ML VIAL IV PUSH (15:39)
[2022-12-07] MEDS: PHENYLEPHRINE 1,000 MCG/10 ML SYRINGE 100 MCG IV PUSH ×2 (15:46→15:56)
--- NOTE | 2022-12-07 15:49 | WPDANESEPPF ---
Anes - Initial Pre Proc Eval Procedure: labor epidural Date/Time: 12/07/22 15:49 Surgeon: Melvin Erazo MD Pre Op Diagnosis: labor pain Pre Op Diagnosis: Induction of Labor Patient Data Age: 32 Gender: F Height: 1.65 m Weight: 115 kg Last Vital Signs Temp 36.4 C 12/07/22 10:45 Pulse 76 12/07/22 15:48 Resp 18 12/07/22 04:09 BP 107/49 L 12/07/22 15:48 Pulse Ox 94 12/07/22 15:45 O2 Del Method Room Air 12/07/22 00:18 Allergies Allergy/AdvReac Type Severity Reaction Status Date / Time No Known Allergies Allergy Verified 11/25/22 15:42 Home Medications Medication Instructions Recorded Confirmed Type aspirin 81 mg tablet,delayed 81 mg PO DAILY 09/21/22 11/25/22 History release (Adult Low Dose Aspirin) labetalol 200 mg tablet 200 mg PO Q12H #180 tabs 09/21/22 11/25/22 Rx prenat.vits,lauren,pqu-nmrz-atbge 1 tablet PO DAILY 09/21/22 11/25/22 History Laboratory Tests 12/07/22 12/07/22 12/07/22 00:41 02:24 04:52 WBC 10.2 H K/mm3 (4.5-10.0) RBC 4.15 L M/mm3 (4.2-5.4) Hgb 11.6 L g/dL (12.0-15.0) Hct 36.1 L % (37.0-47.0) MCV 87.0 fl (80-100) MCH 28.0 pg (26-34) MCHC 32.1 g/dl (32-36) RDW 15.2 H % (11.5-14.5) Plt Count 228 k/mm3 (150-375) MPV 11.7 H fl (7.4-10.4) Immature Gran % (Auto) 0.8 H % (0-0.5) Neut % (Auto) 61.0 % (45.5-73.1) Lymph % (Auto) 23.4 % (18.3-44.2) [place] % (Auto) 10.8 H % (2.6-8.5) Eos % (Auto) 3.5 % (0-4.4) Baso % (Auto) 0.5 % (0.2-1.2) Lymph # (Auto) 2.39 K/mm3 (0.9-3.2) [place] # (Auto) 1.1 H K/mm3 (0.1-0.6) Eos # (Auto) 0.4 H K/mm3 (0-0.3) Baso # (Auto) 0.1 K/mm3 (0.0-0.1) Abs Immat Gran (auto) 0.08 H K/mm3 (0.00-0.031) Absolute Neuts (auto) 6.3 K/mm3 (1.3-6.7) Absolute Nucleated RBC 0.0 K/mm3 (0.0-0.012) Nucleated RBC % 0.0 % (0.0-0.2) Sodium 133 L mmol/L (137-145) Potassium 4.1 mmol/L (3.4-5.0) Chloride 105 mmol/L (98-107) Carbon Dioxide 24 mmol/L (22-30) Anion Gap 4 L mmol/L (8-16) BUN 11 mg/dL (7-17) Creatinine 0.40 L mg/dL (0.7-1.0) Estim Creat Clear Calc 209 ml/min Estimated GFR > 60 (59 - ) Glucose 106 mg/dL (65-110) POC Capillary Glucose 87 mg/dl (65-105) Uric Acid 4.8 mg/dL (2.5-7.5) Calcium 9.0 mg/dL (8.4-10.2) Total Bilirubin 0.4 mg/dL (0.2-1.3) AST 33 U/L (14-36) ALT 18 U/L (6-35) Alkaline Phosphatase 81 U/L (38-126) Total Protein 7.0 g/dL (6.3-8.2) Albumin 3.5 g/dL (3.5-5.1) Urine Color Yellow (Yellow) Urine Appearance Cloudy H (Clear) Urine pH 7.0 (5.0-9.0) Ur Specific [place] 1.011 (1.001-1.035) Urine Protein 1+ H mg/dL (Negative) Urine Glucose (UA) Negative mg/dL (Negative) Urine Ketones Negative mg/dL (Negative) Ur Blood (Man) Negative (Negative) Urine Nitrate Negative (Negative) Urine Bilirubin Negative (Negative) Urine Urobilinogen 0.2 mg/dL (<2.0) Add Ur Microanalysis Reviewed Leukocyte Esterase Rfl 1+ H EMILY/UL (Negative) Urine RBC 0-2 /hpf (0-2) Urine WBC 0-5 /hpf Ur Squamous Epith Cells None seen /hpf (Few) Urine Bacteria None seen /hpf Urine Casts 0-2 U Random Total Protein 38 mg/dL Urine Creatinine 58.9 mg/dL Protein/Creat Ratio 2 0.65 H mg/mg (0-0.20) RPR Non-reactive (NonReactive) Blood Type O Positive Antibody Screen Negative 12/07/22 12/07/22
[2022-12-07 16:54] LABS: Glucose Point of Care 90 mg/dl (65-105)
[2022-12-07 20:37] LABS: Glucose Point of Care 91 mg/dl (65-105)
--- NOTE | 2022-12-07 21:23 | WPDHPUPDATE1 ---
History and Physical Update Update Date/Time: 12/07/22 21:23 History and Physical has been reviewed, including an updated exam of the patient. 6cm, failure to progress, vertex high, EFW 4000g, GDM, obesity, and epidural not working. Pt desires to proceed with . Consented for CS. Pt is L and D RN, questions answered, support given, will proceed. Ancef and azithro. May need general anesthesia, pt aware. Risks, benefits, and alternatives have been discussed and questions answered. Patient agrees to proceed with procedure.
--- NOTE | 2022-12-07 22:51 | PM.OBPRVD ---
OB - Delivery Note Procedure Delivery date: 12/07/22 Procedure: Procedures Operation Date: 12/07/22 21:05 Actual Procedure Side Surgeon p Section Iveth Park MD Events: Chronic Hypertension, Gestational Diabetes and Preeclampsia w severe features Intrapartal Events: Failed Induction of Labor Induction method: AROM, Per Misoprostol Protocol and Per Pitocin Protocol Delivery monitor: External FHT and Internal Uterine Route of delivery: Prior to decision for section, ACOG/SMFM labor guidelines were considered and discussed with the patient and staff. Decision made to proceed with the section.: Yes Specimen: Yes (placenta) Quantitative Blood Loss (ml): 935 Anesthesia type: Epidural Disposition: Floor Complications: none Narrative: The patient was taken to the OR and received spinal anesthesia. She was placed in dorsal supine position with left lateral tilt. SCDs and araujo were placed. She was prepped and draped in the normal sterile fashion. A Pfannensteil skin incision was made and carried through to the underlying layer of fascia. The fascia was incised in the midline and then extended laterally using Ramirez scissors. The muscles were in the midline and the peritoneum was entered bluntly. The peritoneal incision was extended inferiorly and superiorly with care to avoid the bladder. The bladder blade was then inserted, the vesicouterine peritoneum was grasped, incised with Metzenbaum scissors, and a bladder flap created. The bladder blade was reinserted. A low transverse uterine incision was made with a scalpel and extended bluntly. AROM was performed and fluid was noted to be clear. The head was delivered, followed by the remainder of the baby. The baby's oropharynx was suctioned. After 30 seconds, the cord was clamped and cut and the infant was handed off. Cord blood was obtained and the placenta was then removed manually. The uterus was exteriorized. A moist lap sponge was used to curette the endometrium. The uterine incision was then closed with two layers of 0-Vicryl in a running, locking fashion. Three figure of eight sutures placed for hemostasis and good hemostasis was noted. The posterior cul de sac was irrigated with normal saline and cleared of all clot and debris. The uterus was returned to the abdomen. Both lateral gutters were then irrigated. The rectus muscles were inspected and found to be hemostatic. The fascia was reapproximated using 0-Vicryl in running fashion. The subcutaneous tissue was irrigated with normal saline and made hemostatic with Bovie electrocautery. The subcutaneous tissue was reapproximated with a layer of running 2-0 plain gut. The skin was then closed with absorbable yash in a subcuticular fashion. Steri strips and a bandage were applied. The uterus was evacuated. The patient tolerated the procedure very well. All counts were correct. She was taken to the recovery room in good condition. Baby Date of : 12/07/22 Time of : 21:53 Weeks of gestation at delivery: 37 gender: Male Weight (pounds): 7 Weight (ounces): 12 presentation: vertex Placenta delivery description: Manual Removal Cord Vessel Description: 3 Vessels and Delayed Cord Clamping score one minute: 9 score five minutes: 9
[2022-12-08] VITALS (28 sets, daily range): BP systolic 124–155; BP diastolic 63–94; PULSE 77–93; RESP 18–20; TEMP 36.5–36.7; O2SAT 96–100
[2022-12-08] MEDS: HYDROcodone/acetaminophen (*CRX) 10-325 MG TABLET 1 TAB PO ×2 (00:20→03:27)
[2022-12-08] MEDS: LABETALOL HCL 100 MG TABLET 200 MG PO ×3 (00:21→20:38)
[2022-12-08] MEDS: COSYNTROPIN 0.25 MG/ML VIAL 1 MG IV PUSH (00:36)
[2022-12-08] MEDS: MAGNESIUM SULF 20GM/WATER500ML 500 ML 50 MG IV CONT (02:16)
[2022-12-08 05:29] LABS: Basophils Absolute Auto 0.1 K/mm3 (0.0-0.1); Basophils Percent Auto 0.3 % (0.2-1.2); Hematocrit 32.7 % (37.0-47.0); Hemoglobin 10.5 g/dL (12.0-15.0); Immature Granulocyte Absolute 0.12 K/mm3 (0.00-0.031); Immature Granulocyte Percent A 0.5 % (0-0.5); Lymphocytes Absolute Auto 0.89 K/mm3 (0.9-3.2); Lymphocytes Percent Auto 3.9 % (18.3-44.2); Mean Corpuscular HGB Conc 32.1 g/dl (32-36); Mean Corpuscular Hemoglobin 28.5 pg (26-34); Mean Corpuscular Volume 88.6 fl (80-100); Mean Platelet Volume 11.7 fl (7.4-10.4); Monocytes Absolute Auto 0.7 K/mm3 (0.1-0.6); Monocytes Percent Auto 3.2 % (2.6-8.5); Neutrophils Absolute Auto 20.8 K/mm3 (1.3-6.7); Neutrophils Percent Auto 92.1 % (45.5-73.1); Platelet Count Result 244 k/mm3 (150-375); Red Blood Count 3.69 M/mm3 (4.2-5.4); Red Cell Distribution Width 15.7 % (11.5-14.5); White Blood Count 22.6 K/mm3 (4.5-10.0)
--- NOTE | 2022-12-08 07:49 | WPDANLDNPN2 ---
Anes-Prog Note L&D-Neuraxial Date/Time: 12/08/22 07:49 Neuraxial medications: epidural PF morphine Opiod-related complaints: none Patient feedback: Patient satisfied with post-operative pain management.
--- NOTE | 2022-12-08 07:49 | WPDANLDPN2 ---
Anes-Prog Note L&D Date/Time: 12/08/22 07:49 Comfortable throughout: section Neuraxial method: epidural Epidural/Spinal procedure site: clean & non-tender Neuro status: Neuro function grossly intact. Vital Signs: Last Vital Signs Temp 36.7 C 12/08/22 02:00 Pulse 77 12/08/22 03:30 Resp 18 12/08/22 03:30 BP 128/76 12/08/22 03:30 Pulse Ox 96 12/08/22 03:30 O2 Del Method Room Air 12/08/22 02:00 Pain score (VAS): 310 I/O: Intake & Output 12/07/22 12/07/22 12/08/22 15:59 23:59 07:59 Intake Total 1500 500 Balance 1500 500 Patient feedback: Patient satisfied with anesthetic care.
--- NOTE | 2022-12-08 08:11 | PM.OBPNVD ---
OB - PN: Subj Subjective Date/time seen: 12/08/22 08:11 Patient comments: no complaints, pain well controlled, tolerating diet and flatus present OB - PN: Obj Data Labs 12/08/22 03:33 12/07/22 00:41 Labs: Laboratory Results - last 24 hr 12/07/22 12/07/22 12/07/22 00:41 11:36 16:49 WBC RBC Hgb Hct MCV MCH MCHC RDW Plt Count MPV Immature Gran % (Auto) Neut % (Auto) Lymph % (Auto) [place] % (Auto) Eos % (Auto) Baso % (Auto) Lymph # (Auto) [place] # (Auto) Eos # (Auto) Baso # (Auto) Abs Immat Gran (auto) Absolute Neuts (auto) Absolute Nucleated RBC Nucleated RBC % POC Capillary Glucose 76 90 RPR Non-reactive 12/07/22 12/08/22 20:34 03:33 WBC 22.6 H RBC 3.69 L Hgb 10.5 L Hct 32.7 L MCV 88.6 MCH 28.5 MCHC 32.1 RDW 15.7 H Plt Count 244 MPV 11.7 H Immature Gran % (Auto) 0.5 Neut % (Auto) 92.1 H Lymph % (Auto) 3.9 L [place] % (Auto) 3.2 Eos % (Auto) 0.0 Baso % (Auto) 0.3 Lymph # (Auto) 0.89 L [place] # (Auto) 0.7 H Eos # (Auto) 0.0 Baso # (Auto) 0.1 Abs Immat Gran (auto) 0.12 H Absolute Neuts (auto) 20.8 H Absolute Nucleated RBC 0.0 Nucleated RBC % 0.0 POC Capillary Glucose 91 RPR OB - PN A/P Plan day: 1 Comments: Post Op LTCS - no problems, routine recovery.,Normal BP's, 2 DC mac Time Spent With Patient Time: Total time spent is greater than 50% in coordination of care (as documented) at patient's floor/unit and/or counseling patient: Exam Const: General: cooperative, healthy appearing, comfortable and no acute distress Resp: Auscultation: no crackles, no rales, no rhonchi and no wheezes Cardio: Rhythm: regular rhythm Heart sounds: no click and no murmurs GI: Inspection: non-distended Auscultation: normal bowel sounds Extrem: General: normal to inspection, no pedal edema and no calf tenderness
[2022-12-08] MEDS: MULTIVIT/MIN/PREN/FOL AC/IRON TABLET 1 TAB PO (09:55)
[2022-12-08] MEDS: DOCUSATE SODIUM 100 MG CAPSULE PO ×2 (09:56→17:08)
[2022-12-08] MEDS: HYDROcodone/acetaminophen (*CRX) 5-325 MG TABLET 1 TAB PO ×3 (12:57→20:39)
[2022-12-08] MEDS: IBUPROFEN 600 MG TABLET PO ×2 (12:58→20:39)
--- NOTE | 2022-12-08 14:10 | PC.NURSE ---
[id number] Mother verbalizes she is able to independently latch with appropriate positioning/alignment. She denies any nipple discomfort and is responsively . is currently meeting outcomes for weight, output, jaundice and feeding frequencies of 8-12 times in 24 hours. Mother states she started pumping with her personal pump. Risks and benefits were discussed regarding effectively and pumping. Encouraged mother to let demand the milk and how to prevent an oversupply. Mother is encouraged to call for assistance if her infant doesn?t latch or there is discomfort with latching. Mother voiced understanding of information shared and the mom/baby guide is available for additional resources.
[2022-12-09] VITALS (8 sets, daily range): BP systolic 128–164; BP diastolic 62–93; PULSE 78–91; RESP 16–18; TEMP 36.6–37.2; O2SAT 98–100
[2022-12-09] MEDS: HYDROcodone/acetaminophen (*CRX) 5-325 MG TABLET 1 TAB PO ×5 (00:52→21:29)
[2022-12-09] MEDS: IBUPROFEN 600 MG TABLET PO ×3 (05:13→16:58)
--- NOTE | 2022-12-09 08:00 | PM.OBPNVD ---
OB - PN: Subj Subjective Date/time seen: 12/09/22 08:00 s/p section day 2 baby doing well flatus present pain well managed OB - PN: Obj Data Labs 12/08/22 03:33 12/07/22 00:41 OB - PN A/P Plan day: 2 Plan: routine care Time Spent With Patient Time: Total time spent is greater than 50% in coordination of care (as documented) at patient's floor/unit and/or counseling patient: Review of Systems Review of Systems: All systems reviewed & are unremarkable except as noted in HPI and below Exam Const: General: cooperative and healthy appearing Chest: Chest palpation & inspection: normal inspection of the chest Resp: Effort & Inspection: normal respiratory effort Auscultation: clear to auscultation bilaterally Cardio: Rate: regular rate Rhythm: regular rhythm GI: Inspection: normal to inspection Back/Spine/Pelvis: Back: no CVA tenderness Skin: General skin exam: normal color Extrem: Right lower extremity: normal to inspection Left lower extremity: normal to inspection Psych: Appearance: grossly normal
[2022-12-09] MEDS: MULTIVIT/MIN/PREN/FOL AC/IRON TABLET 1 TAB PO (10:35)
[2022-12-09] MEDS: DOCUSATE SODIUM 100 MG CAPSULE PO ×2 (10:35→16:58)
[2022-12-09] MEDS: LABETALOL HCL 100 MG TABLET 200 MG PO ×2 (10:35→20:59)
[2022-12-09 10:55] LABS: Alanine Aminotransferase 19 U/L (6-35); Albumin Level 3.3 g/dL (3.5-5.1); Alkaline Phosphatase 75 U/L (38-126); Anion Gap 2 mmol/L (8-16); Aspartate Amino Transferase 32 U/L (14-36); Bilirubin,Total 0.2 mg/dL (0.2-1.3); Blood Urea Nitrogen 13 mg/dL (7-17); Calcium 8.3 mg/dL (8.4-10.2); Carbon Dioxide 27 mmol/L (22-30); Chloride 107 mmol/L (98-107); Estimated CRCL calculation 188 ml/min; Estimated Glomerular Filt Rate > 60; Glucose 116 mg/dL (65-110); Sodium 136 mmol/L (137-145)
--- NOTE | 2022-12-09 13:16 | PC.NURSE ---
[id number] Purposefully rounded to assess patients needs. She states is well with no pain and mother states she is pumping to see how much milk she has. Last pumping session was 2mls. Encouraged mother to call out for the next feeding as has been initiated under phototherapy, for questions regarding supplementation, and Primary RN is present assessing patient.
[2022-12-10] VITALS (12 sets, daily range): BP systolic 137–160; BP diastolic 88–98; PULSE 83–102; RESP 16; TEMP 36.7–36.9; O2SAT 98–100
[2022-12-10 05:04] LABS: Basophils Absolute Auto 0.1 K/mm3 (0.0-0.1); Basophils Percent Auto 0.5 % (0.2-1.2); Eosinophils Absolute Auto 0.5 K/mm3 (0-0.3); Eosinophils Percent Auto 3.7 % (0-4.4); Hematocrit 27.7 % (37.0-47.0); Hemoglobin 8.8 g/dL (12.0-15.0); Immature Granulocyte Absolute 0.21 K/mm3 (0.00-0.031); Immature Granulocyte Percent A 1.6 % (0-0.5); Lymphocytes Absolute Auto 2.53 K/mm3 (0.9-3.2); Lymphocytes Percent Auto 19.3 % (18.3-44.2); Mean Corpuscular HGB Conc 31.8 g/dl (32-36); Mean Corpuscular Hemoglobin 28.7 pg (26-34); Mean Corpuscular Volume 90.2 fl (80-100); Mean Platelet Volume 10.7 fl (7.4-10.4); Monocytes Absolute Auto 1.1 K/mm3 (0.1-0.6); Monocytes Percent Auto 8.3 % (2.6-8.5); Neutrophils Absolute Auto 8.7 K/mm3 (1.3-6.7); Neutrophils Percent Auto 66.6 % (45.5-73.1); Platelet Count Result 231 k/mm3 (150-375); Red Blood Count 3.07 M/mm3 (4.2-5.4); Red Cell Distribution Width 15.9 % (11.5-14.5); White Blood Count 13.1 K/mm3 (4.5-10.0)
--- NOTE | 2022-12-10 05:56 | PM.OBPNVD ---
OB - PN: Subj Subjective Date/time seen: 12/10/22 05:56 s/p primary section day 3 CHTN with superimposed preeclampsia Blood pressures reviewed labs wnl pt denies headache, visual changes, epigastric pain pain well managed flatus present OB - PN: Obj Data Labs 12/10/22 03:24 12/09/22 10:38 Labs: Laboratory Results - last 24 hr 12/09/22 12/10/22 10:38 03:24 WBC 13.1 H RBC 3.07 L Hgb 8.8 L Hct 27.7 L MCV 90.2 MCH 28.7 MCHC 31.8 L RDW 15.9 H Plt Count 231 MPV 10.7 H Immature Gran % (Auto) 1.6 H Neut % (Auto) 66.6 Lymph % (Auto) 19.3 [place] % (Auto) 8.3 Eos % (Auto) 3.7 Baso % (Auto) 0.5 Lymph # (Auto) 2.53 [place] # (Auto) 1.1 H Eos # (Auto) 0.5 H Baso # (Auto) 0.1 Abs Immat Gran (auto) 0.21 H Absolute Neuts (auto) 8.7 H Absolute Nucleated RBC 0.0 Nucleated RBC % 0.0 Sodium 136 L Potassium 4.0 Chloride 107 Carbon Dioxide 27 Anion Gap 2 L BUN 13 Creatinine 0.50 L Estim Creat Clear Calc 188 Estimated GFR > 60 Glucose 116 H Calcium 8.3 L Total Bilirubin 0.2 AST 32 ALT 19 Alkaline Phosphatase 75 Total Protein 6.0 L Albumin 3.3 L OB - PN A/P Plan day: 3 Plan: routine care Comments: Increase to labetalol 300mg BID if pressures remain stable and pt asymptomatic consider d/c home this evening pt given precautions Time Spent With Patient Time: Total time spent is greater than 50% in coordination of care (as documented) at patient's floor/unit and/or counseling patient: Review of Systems Review of Systems: All systems reviewed & are unremarkable except as noted in HPI and below Exam Const: General: cooperative and healthy appearing Chest: Chest palpation & inspection: normal inspection of the chest Resp: Effort & Inspection: normal respiratory effort Cardio: Rate: regular rate Rhythm: regular rhythm GI: Other: soft incision CDI Back/Spine/Pelvis: Back: no CVA tenderness Skin: General skin exam: normal color Neuro: General: patient oriented x3 Extrem: Right lower extremity: edema Left lower extremity: edema Other: bilateral 1+ edema
[2022-12-10] MEDS: LABETALOL HCL 100 MG TABLET 300 MG PO (07:46)
[2022-12-10] MEDS: IBUPROFEN 600 MG TABLET PO ×3 (07:47→21:22)
[2022-12-10] MEDS: DOCUSATE SODIUM 100 MG CAPSULE PO ×2 (07:47→16:06)
[2022-12-10] MEDS: MULTIVIT/MIN/PREN/FOL AC/IRON TABLET 1 TAB PO (07:47)
[2022-12-10] MEDS: HYDROcodone/acetaminophen (*CRX) 5-325 MG TABLET 1 TAB PO ×2 (07:47→21:20)
[2022-12-10] MEDS: POLYSACCHARIDE IRON COMPLEX 150 MG CAPSULE PO ×2 (07:49→16:06)
[2022-12-10] MEDS: HYDROcodone/acetaminophen (*CRX) 10-325 MG TABLET 1 TAB PO ×2 (12:20→16:06)
[2022-12-10] MEDS: NIFEdipine 30 MG TAB.ER.24 PO (14:01)
[2022-12-10] MEDS: LABETALOL HCL 100 MG TABLET PO (16:46)
[2022-12-10] MEDS: LABETALOL HCL 100 MG TABLET 400 MG PO (21:18)
[2022-12-11 04:00] VITALS: BP 124/78; PULSE 88
[2022-12-11 07:00] VITALS: BP 148/90; PULSE 90; RESP 16; TEMP 36.6; O2SAT 98
[2022-12-11] MEDS: IBUPROFEN 600 MG TABLET PO (07:00)
--- NOTE | 2022-12-11 08:30 | PM.OBPNVD ---
OB - PN: Subj Subjective Date/time seen: 12/11/22 08:30 Bp's 150's/90's denies umanzor, visual changes, epigastric pain baby doing well pain well managed OB - PN: Obj Data Labs 12/10/22 03:24 12/09/22 10:38 OB - PN A/P Plan day: 4 Plan: routine care and discharge home Comments: dr gudino ordered procardia 60 xl daily with labetalol 400mg bid take bp's at home monitor for sxs f/u one week Time Spent With Patient Time: Total time spent is greater than 50% in coordination of care (as documented) at patient's floor/unit and/or counseling patient: Review of Systems Review of Systems: All systems reviewed & are unremarkable except as noted in HPI and below Exam Const: General: cooperative and healthy appearing Chest: Chest palpation & inspection: normal inspection of the chest Resp: Effort & Inspection: normal respiratory effort Cardio: Rate: regular rate Rhythm: regular rhythm GI: Inspection: normal to inspection : Other: deferred Back/Spine/Pelvis: Back: no CVA tenderness Skin: General skin exam: normal color Extrem: Right lower extremity: normal to inspection Left lower extremity: normal to inspection Psych: Appearance: grossly normal
--- NOTE | 2022-12-11 08:34 | P.DS_ITS ---
DS: Admitting Diagnosis Discharge Date 12/11/22 Admitting Diagnosis IOL, HTN with superimposed preeclampsia DS: Discharge Diagnosis Discharge Diagnosis (1) Essential (primary) hypertension: Code(s): I10 - Essential (primary) hypertension Status: Acute (2) Vaginal delivery: Code(s): O80 - Encounter for full-term uncomplicated delivery Status: Acute OB - DS: Summary OB Procedures : None OB Procedures Intrapartum: OB Procedures: : None Peripartum Data Procedures: Procedures Operation Date: 12/07/22 21:05 Actual Procedure Side Surgeon p Section Iveth Park MD Time Spent with Patient Time attestation: Total time spent providing and/or coordinating discharge services: Discharge Plan Discharge Attending physician on discharge: Melvin Erazo Discharging Clinician: Lien Lucero Patient Disposition: Home, Self-Care Activity: pelvic rest Diet: regular Patient Instructions: Antibiotic Form Stand Alone Forms: General Discharge Information Follow-up/Referrals: Lien Lucero, CNM [Certified Nurse Pediatric Geneticist] - 1 Week Discharge Medications: New hydrocodone-acetaminophen 5-325 mg Tablet 1 tablet PO Q3H PRN (Reason: Moderate Pain (4-6)) Qty: 30 0RF labetalol 300 mg tablet 400 mg PO Q12H Qty: 60 0RF nifedipine [Procardia XL] 60 mg tablet extended release 24hr 60 mg PO DAILY Qty: 20 0RF Continued prenat.vits,lauren,lmv-tvax-tgmjv Tablet 1 tablet PO DAILY Discontinued labetalol 200 mg tablet 200 mg PO Q12H Qty: 180 3RF aspirin [Adult Low Dose Aspirin] 81 mg tablet,delayed release (DR/EC) 81 mg PO DAILY Patient Comments: started by addictions recovery specialist during Date of admission: 12/07/22 00:01 Primary Care Provider: Shayne Castro Admitting Provider: Melvin Erazo Attending physician on admission: Melvin Erazo Condition: Stable
[2022-12-11] MEDS: POLYSACCHARIDE IRON COMPLEX 150 MG CAPSULE PO (09:03)
[2022-12-11] MEDS: DOCUSATE SODIUM 100 MG CAPSULE PO (09:03)
[2022-12-11] MEDS: MULTIVIT/MIN/PREN/FOL AC/IRON TABLET 1 TAB PO (09:03)
[2022-12-11 09:04] VITALS: PULSE 85
[2022-12-11] MEDS: NIFEdipine 30 MG TAB.ER.24 PO (09:04)
[2022-12-11] MEDS: LABETALOL HCL 100 MG TABLET 400 MG PO (09:04)
[2022-12-12 10:08] VITALS: BP 126/82; PULSE 79; RESP 18; TEMP 37.1; O2SAT 100
== END 2022-12-11 10:30 | disposition home or self-care (01) | DRG 788 ==
LOC: ANHLDR 00:07 → ANHOB2 12-08 01:52
PROVIDERS: Admitting Provider Obstetrics & Gynecology; PCP Family Medicine; Referring Provider Advanced Practice Midwife; Visit Provider Obstetrics & Gynecology
PROC: 10D00Z1 Extraction of Products of Conception, Low, Open Approach (ICD-10-PCS; CPT 59514; principal; 2022-12-07 21:05)
DX: O99.214 Obesity complicating childbirth (principal); E66.01 Morbid (severe) obesity due to excess calories; O11.4 Pre-existing hypertension with pre-eclampsia, complicating childbirth; O10.92 Unspecified pre-existing hypertension complicating childbirth; O99.02 Anemia complicating childbirth; O24.429 Gestational diabetes mellitus in childbirth, unspecified control; Z3A.37 37 weeks gestation of pregnancy; Z37.0 Single live birth; O62.0 Primary inadequate contractions; Z86.16 Personal history of COVID-19; E78.5 Hyperlipidemia, unspecified
CPT/HCPCS: 36415; 80053; 81001; 82570; 82948; 84156; 84550; 85025; 86592; 86850; 86900; 86901; A9270; J0131; J0834; J2250; J2274; J2370; J2405; J2590; J2795; J3475; J7120

== ENCOUNTER → 2023-01-23 09:51 | Outpatient (CLI) | payer OTHER, SELFPAY ==
--- NOTE | ~2023-01-23 | XR_ITS ---
Right wrist Technique: PA and lateral views were obtained. Clinical History: Pain Findings: No acute fracture or dislocation is seen. Osseous alignment is anatomic. Joint spaces are p reserved. Soft tissues are unremarkable. Impression: Unremarkable right wrist radiographs. Reviewed, dictated and finalized at location M. Impression: Unremarkable right wrist radiographs.
--- NOTE | ~2023-01-23 | XR_ITS ---
Left wrist Technique: PA and lateral views were obtained. Clinical History: Pain Findings: No acute fracture or dislocation is seen. Osseous alignment is anatomic. Joint spaces are p reserved. Soft tissues are unremarkable. Impression: Unremarkable left wrist radiographs. Reviewed, dictated and finalized at location M. Impression: Unremarkable left wrist radiographs.
== END ==
PROVIDERS: PCP Nurse Practitioner Family; Visit Provider Nurse Practitioner Family
DX: M25.531 Pain in right wrist (principal); M25.532 Pain in left wrist
CPT/HCPCS: 73100

== ENCOUNTER 2023-03-14 09:22 | Outpatient (CLI) | payer OTHER, SELFPAY ==
--- NOTE | 2023-03-14 11:30 | NEURO_ITS ---
Impression: # Complains of wrist numbness starting during and persistence subsequently. # Mild bilateral Carpal Tunnel Syndrome. # Normal needle/EMG. Nerve Conduction Studies Anti Sensory Summary Table Stim Site NR Peak (ms) P-T Amp (?V) Site1 Site2 Delta-P (ms) Dist (cm) [place] (m/s) Left Median Anti Sensory (2-3nd Digit) Wrist 3.5 37.5 Wrist 2-3nd Digit 3.5 14.0 40 Wrist 3.5 55.3 Wrist 2-3nd Digit 3.5 14.0 40 Right Median Anti Sensory (2-3nd Digit) Wrist 4.4 20.0 Wrist 2-3nd Digit 4.4 14.0 32 Wrist 4.4 28.9 Wrist 2-3nd Digit 4.4 14.0 32 Left Radial Anti Sensory (Base 1st Digit) Wrist 1.9 39.2 Wrist Base 1st Digit 1.9 0.0 Right Radial Anti Sensory (Base 1st Digit) Wrist 2.1 21.5 Wrist Base 1st Digit 2.1 0.0 Left Ulnar Anti Sensory (5th Digit) Wrist 2.3 41.1 Wrist 5th Digit 2.3 14.0 61 Right Ulnar Anti Sensory (5th Digit) Wrist 2.6 14.8 Wrist 5th Digit 2.6 14.0 54 Motor Summary Table Stim Site NR Onset (ms) O-P Amp (mV) Site1 Site2 Delta-0 (ms) Dist (cm) [place] (m/s) Left Median Motor (Abd Poll Brev) Wrist 4.4 2.9 Elbow Wrist 4.8 28.0 58 Elbow 9.2 2.5 Right Median Motor (Abd Poll Brev) Wrist 4.1 2.3 Elbow Wrist 4.7 26.0 55 Elbow 8.8 2.1 Left Ulnar Motor (Abd Dig Minimi) Wrist 2.4 7.4 A Elbow Wrist 4.9 29.0 59 A Elbow 7.3 4.1 Right Ulnar Motor (Abd Dig Minimi) Wrist 2.3 9.6 A Elbow Wrist 5.0 28.0 56 A Elbow 7.3 8.1 F Wave Studies NR F-Lat (ms) L-R F-Lat (ms) Left Median (Mrkrs) (Abd Poll Brev) 28.39 1.08 Right Median (Mrkrs) (Abd Poll Brev) 27.31 1.08 Left Ulnar (Mrkrs) (Abd Dig Min) 26.36 0.52 Right Ulnar (Mrkrs) (Abd Dig Min) 26.88 0.52 EMG Side Muscle Nerve Root Ins Act Fibs Amp Dur Recrt Comment Right 1stDorInt Ulnar C8-T1 Nml Nml Nml Nml Nml Right Ext Indicis Radial (Post Int) C7-8 Nml Nml Nml Nml Nml Right Ext Digitorum Radial (Post Int) C7-8 Nml Nml Nml Nml Nml Right BrachioRad Radial C5-6 Nml Nml Nml Nml Nml Right PronatorTeres Median C6-7 Nml Nml Nml Nml Nml Right Abd Poll Brev Median C8-T1 Nml Nml Nml Nml Nml Left 1stDorInt Ulnar C8-T1 Nml Nml Nml Nml Nml Left Ext Indicis Radial (Post Int) C7-8 Nml Nml Nml Nml Nml Left Ext Digitorum Radial (Post Int) C7-8 Nml Nml Nml Nml Nml Left BrachioRad Radial C5-6 Nml Nml Nml Nml Nml Left PronatorTeres Median C6-7 Nml Nml Nml Nml Nml Left Abd Poll Brev Median C8-T1 Nml Nml Nml Nml Nml MTDD
== END 2023-03-14 09:23 | disposition home or self-care (01) ==
LOC: ANHNEURO 09:22
PROVIDERS: PCP Nurse Practitioner Family; Visit Provider Nurse Practitioner Family
DX: G56.03 Carpal tunnel syndrome, bilateral upper limbs (principal)
CPT/HCPCS: 95886; 95911

== ENCOUNTER 2025-04-07 17:05 | Outpatient (CLI) | payer OTHER, SELFPAY ==
--- NOTE | ~2025-04-07 | XR_ITS ---
XR foot RT min 3V INDICATION: pain right 5th digit . COMPARISON: None. FINDINGS: Frontal, lateral and oblique views of the right foot were obtained. Comminuted displaced fracture of the head of the proximal phalanx of the fifth toe. No dislocation. IMPRESSION: Comminuted displaced fracture of the head of the proximal phalanx of the fifth toe. Reviewed, dictated and finalized at location S.
== END 2025-04-07 17:06 | disposition home or self-care (01) ==
PROVIDERS: PCP Family Medicine; Visit Provider Family Medicine
DX: S92.511A Displaced fracture of proximal phalanx of right lesser toe(s), initial encounter for closed fracture (principal); X58.XXXA Exposure to other specified factors, initial encounter
CPT/HCPCS: 73630